=== PATIENT | female | born 1985 | race Hispanic/Latino ===

== ENCOUNTER 2016-06-06 23:56 | Inpatient (IN) | payer OTHER ==
[2016-06-07] MEDS ORDERED: ZOFRAN IV ONE (00:31)
[2016-06-07] MEDS ORDERED: NACL 0.9% 1000 ML IV ONE (00:31)
[2016-06-07 00:49] LABS: Basophils % (Auto) 0.8 % (0.0-1.8); Eosinophils % (Auto) 0.5 % (0.0-4.3); Hematocrit 42.5 % (30.3-42.9); Hemoglobin 14.2 gm/dl (10.1-14.3); Mean Corpuscular HGB Conc 33 % (30-34); Mean Corpuscular Hemoglobin 31 pg (28-32); Mean Corpuscular Volume 91 fl (79-97); Platelet Count 182 K/mm3 (140-440); Red Blood Count 4.66 M/mm3 (3.65-5.03); Red Cell Distribution Width 13.5 % (13.2-15.2); White Blood Count 8.1 K/mm3 (4.5-11.0)
[2016-06-07 01:06] LABS: Alanine Aminotransferase 23 units/L (7-56); Albumin 4.3 g/dL (3.9-5); Albumin/Globulin Ratio 1.7 %; Alkaline Phosphatase 66 units/L (35-129); Bilirubin,Total < 0.2 mg/dL (0.1-1.2); Blood Urea Nitrogen 10 mg/dL (7-17); Carbon Dioxide 19 mmol/L (22-30); Glucose 105 mg/dL (65-100); Lipase 45 units/L (13-60); Sodium 145 mmol/L (137-145); Total Protein 6.9 g/dL (6.3-8.2)
[2016-06-07 01:16] LABS: Anion Gap 21 mmol/L
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
[2016-06-07 02:23] LABS: Urine Drugs of Abuse Note Disclamer
[2016-06-07] MEDS ORDERED: ZOFRAN IV PRN (02:56)
[2016-06-07] MEDS ORDERED: PROTONIX IV ONE (02:56)
[2016-06-07 03:03] LABS: Bilirubin,Urine NEG (Negative); Blood,Urine NEG (Negative); Ketones,Urine TR mg/dL (Negative); Leukocyte Esterase,Urine LG (Negative); Mucus,Urine FEW /HPF; Nitrite,Urine NEG (Negative); Protein,Urine <15 mg/dL mg/dL (Negative); Uric Acid Crystals,Urine 2+; Urobilinogen,Urine < 2.0 mg/dL (<2.0)
[2016-06-07 03:04] LABS: Trichomonas,Urine Present /HPF
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
[2016-06-07 03:49] LABS: Hemoglobin 13.2 gm/dl (10.1-14.3)
[2016-06-07] MEDS ORDERED: DILAUDID IV ONE (06:27)
[2016-06-07 07:01] LABS: Hematocrit 40.5 % (30.3-42.9); Hemoglobin 13.3 gm/dl (10.1-14.3)
[2016-06-07] MEDS ORDERED: PROTONIX IV SCH (10:00)
[2016-06-07] MEDS: ROCEPHIN/NS 1 GM/50 ML 1 GM/50 ML BAG IV SCH (10:46)
[2016-06-07 10:49] LABS: Hematocrit 40.8 % (30.3-42.9); Hemoglobin 13.5 gm/dl (10.1-14.3)
[2016-06-07] MEDS: NACL 0.9% 1000 ML 1,000 ML IV SCH ×2 (10:57→12:30)
[2016-06-07] MEDS: TYLENOL PO PRN (10:57)
--- NOTE | 2016-06-07 11:24 | Admit Criteria Form ---
Admission Criteria Documentation: GASTROINTESTINAL BLEEDING, UPPER Clinical Indications for Admission to Inpatient Care ( Place 'X' for any and all applicable criteria): Admission is indicated for ANY ONE of the following(1)(2)(3)(4)(5)(6): [X]I. Active bleeding (eg, fresh voluminous blood in emesis or nasogastric aspirate) [ ]II. Associated conditions requiring hospitalization (eg, perforation, obstruction from ulcer) [ ]III. Inpatient admission required rather than observation care (Also use Gastrointestinal Bleeding, Upper: Observation Care as appropriate) because of ANY ONE of the following: [ ]a) Hemodynamic instability that is severe or persistent [ ]b) Anemia requiring inpatient admission as indicated by ALL of the following: [ ]1) Presence of significant clinical finding indicated by ANY ONE of the following: [ ]A. Tachycardia for age [ ]B. Orthostatic vital sign changes [ ]C. Cognitive impairment [ ]D. Heart failure [ ]E. Chest pain [ ]F. Exertional dyspnea [ ]G. Other findings suggesting inadequate perfusion (eg, peripheral or myocardial ischemia, end organ dysfunction) [ ]2) Initial (eg, emergency department, observation care) treatment with transfusion or volume replacement is judged inappropriate (due to severity of the finding) or has been ineffective [ ]c) Severe pain requiring acute inpatient management [ ]d) High-risk low platelet count [ ]e) IV fluid to replace significant ongoing losses (greater than 3 L/m2 per day) [ ]f) Immediate inpatient surgery [ ]g) Other condition, treatment or monitoring requiring inpatient admission [ ]IV. Severe liver disease (eg, cirrhosis) [ ]V. Significant active comorbid disease [ ]. Anticoagulation therapy [ ]VII. High-risk endoscopic features (arterial bleeding, adherent clot, nonbleeding visible vessel, varices, flat red spots, ulcer size greater than 2 cm, or portal hypertensive gastropathy) [ ]VIII. Previous aortic graft placement or known aortic aneurysm [ ]IX. Coagulopathy [ ]X. Syncope Extended stay beyond goal length of stay may be needed for(1)(2): [ ]a) Emergency surgery [ ]b) Varices [ ]c) Coagulation abnormalities [ ]d) Recurrent, obscure, or persistent bleeding or continued Hemodynamic instability [ ]e) Associated conditions requiring surgery (eg, perforated gastric ulcer, gastric outlet obstruction) [ ]f) Active comorbidities (eg, renal insufficiency, heart failure, pre- existing liver disease) The original [facility] [employer] content created by [facility] [employer] has been revised. The portions of the content which have been revised are identified through the use of italic text or in bold, and [facility] has neither reviewed nor approved the modified material. All other unmodified content is copyright [facility] [employer]. Please see references footnoted in the original [facility] [employer] edition 2016 Admission Criteria Met: Yes
[2016-06-07] MEDS ORDERED: NACL 0.9% 1000 ML 1,000 ML ONE (12:12)
[2016-06-07] MEDS ORDERED: BENADRYL ONE (12:15)
[2016-06-07] MEDS ORDERED: VERSED IV ONE (12:16)
[2016-06-07] MEDS ORDERED: SUBLIMAZE ONE (12:17)
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
[2016-06-07 14:50] LABS: Hemoglobin 11.6 gm/dl (10.1-14.3)
--- NOTE | 2016-06-07 16:54 | Post Operative Note ---
Pre-op diagnosis: epigastric pain, caustic ingestion Post-op diagnosis: same Findings: EGD: erythema w/o ulcers diffusely esophagus, stomach, duodenum - negative other Procedure: EGD Anesthesia: MAC Surgeon: ROSALIA BURTON Estimated blood loss: none Pathology: none Condition: stable Disposition: floor
[2016-06-07] MEDS ORDERED: LIDOCAINE VISCOUS 2% PO ONE (20:24)
[2016-06-07] MEDS ORDERED: ALUM-MAG HYDROX-SIMETH 200-200-20MG/5ML PO PRN (20:24)
[2016-06-07] MEDS: CARAFATE PO SCH (22:16)
[2016-06-08] MEDS: CARAFATE PO SCH ×4 (00:36→18:06)
[2016-06-08] MEDS: TYLENOL PO PRN (00:36)
--- NOTE | 2016-06-08 00:51 | Operative Report ---
PROCEDURE: EGD. INDICATION: 1. Epigastric pain. 2. Caustic ingestion. MEDICATIONS: Propofol per PATIENT PLACEMENT COORDINATOR. COMPLICATIONS: None. DESCRIPTION OF PROCEDURE: The patient was done in the Emergency Room. The patient had the procedure discussed with her at length. All risks, complications, and benefits were discussed after which the patient signed for the procedure to be performed. The patient was placed in the left lateral decubitus position. Mouth block placed in the patient's oral cavity. After adequate sedation medication as above, endoscope was placed into the mouth and brought to the level of the second portion of duodenum. Retroflexion view performed. The patient's vital signs remained stable throughout the procedure. FINDINGS: There was noted to be mild erythema without obvious ulcers noted along the length of the esophagus. There were no other obvious pathology was noted. A small hiatal hernia at GE junction. There was diffuse erythema also noted in the stomach without any obvious ulcers or other significant pathology. No biopsies were taken during this procedure. The duodenum appeared grossly normal except for mild erythema. Retroflexion view performed in the stomach showed no other pathology other than noted above. The patient tolerated the procedure well. No complications during the procedure. IMPRESSIONS: 1. Mild erythema noted in the esophagus as well as stomach, but no other significant pathology. 2. Small hiatal hernia. 3. Mild erythema, duodenum. RECOMMENDATIONS: 1. Clear liquid diet and advance as tolerated. 2. Carafate suspension q.i.d. before meals. 3. PPI daily. 4. Further recommendation based on progress. JOB# [id number] [facility]
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
[2016-06-08] MEDS ORDERED: MORPHINE IV ONE (02:55)
[2016-06-08] MEDS: NACL 0.9% 1000 ML 1,000 ML IV SCH ×2 (03:55→11:43)
[2016-06-08 06:29] LABS: Basophils % (Auto) 0.3 % (0.0-1.8); Eosinophils % (Auto) 1.3 % (0.0-4.3); Hematocrit 33.4 % (30.3-42.9); Hemoglobin 11.1 gm/dl (10.1-14.3); Mean Corpuscular HGB Conc 33 % (30-34); Mean Corpuscular Hemoglobin 30 pg (28-32); Mean Corpuscular Volume 91 fl (79-97); Platelet Count 137 K/mm3 (140-440); Red Blood Count 3.67 M/mm3 (3.65-5.03); Red Cell Distribution Width 13.7 % (13.2-15.2); White Blood Count 10.3 K/mm3 (4.5-11.0)
[2016-06-08 06:49] LABS: Blood Urea Nitrogen 10 mg/dL (7-17); Calcium 8.2 mg/dL (8.4-10.2); Carbon Dioxide 26 mmol/L (22-30); Chloride 106.2 mmol/L (98-107); Glucose 94 mg/dL (65-100); Sodium 138 mmol/L (137-145)
[2016-06-08 06:51] LABS: Anion Gap 11 mmol/L
[2016-06-08 06:52] LABS: Potassium 4.9 mmol/L (3.6-5.0)
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
[2016-06-08] MEDS: PROTONIX PO SCH (11:29)
[2016-06-08] MEDS: NORCO 5/325 PO PRN ×2 (11:29→21:17)
[2016-06-08] MEDS: HABITROL TD SCH (11:41)
--- NOTE | 2016-06-08 15:34 | Gastroenterology Progress Note ---
Assessment and Plan 1.S/P PO bleach intake -S/P EGD with mild erythema to esophagus and diffuse erythema to stomach. No ulcerations seen. -Continue PPI/ Carafate x 2 weeks. -Ok to advance to full liquids and if tolerates advance to soft. WBC WNL, no bleeding or vomiting. -No further GI intervention needed. -Further manangement per Primary. -GI will sign off. Subjective Date of service: 06/08/16 Interval history: No acute changes overnight. Patient has complaints of mild burning in esophagus. Objective - Constitutional Vitals: Temp Pulse Resp BP Pulse Ox 98.6 F 74 20 106/59 99 06/08/16 13:03 06/08/16 13:03 06/08/16 13:03 06/08/16 13:03 06/08/16 13:03 General appearance: no acute distress - EENT Eyes: EOM intact ENT: hearing intact - Neck Neck: supple - Respiratory Respiratory: bilateral: CTA - Cardiovascular Rhythm: regular Heart Sounds: Present: S1 & S2 - Gastrointestinal General gastrointestinal: Present: soft, non-distended, normal bowel sounds - Integumentary Integumentary: Present: warm, dry - Neurologic Neurological: alert and oriented x3 - Psychiatric Psychiatric: cooperative - Labs CBC & Chem 7: 06/08/16 05:26 06/08/16 05:26 Labs: Laboratory Results - last 24 hr 06/08/16 06/08/16 05:26 05:26 WBC 10.3 RBC 3.67 Hgb 11.1 Hct 33.4 MCV 91 MCH 30 MCHC 33 RDW 13.7 Plt Count 137 L Lymph % (Auto) 23.7 [place] % (Auto) 6.4 Eos % (Auto) 1.3 Baso % (Auto) 0.3 Lymph # 2.4 [place] # 0.7 Eos # 0.1 Baso # 0.0 Seg Neutrophils % 68.3 Seg Neutrophils # 7.0 Sodium 138 Potassium 4.9 D Chloride 106.2 Carbon Dioxide 26 D Anion Gap 11 BUN 10 Creatinine 0.5 L Estimated GFR > 60 BUN/Creatinine Ratio 20.00 Glucose 94 Calcium 8.2 L
[2016-06-09] MEDS: CARAFATE PO SCH ×5 (01:44→23:12)
[2016-06-09 06:35] LABS: Blood Urea Nitrogen 4 mg/dL (7-17); Calcium 8.6 mg/dL (8.4-10.2); Carbon Dioxide 25 mmol/L (22-30); Glucose 94 mg/dL (65-100)
[2016-06-09 06:36] LABS: Anion Gap 13 mmol/L; Chloride 103.8 mmol/L (98-107); Potassium 4.3 mmol/L (3.6-5.0); Sodium 137 mmol/L (137-145)
[2016-06-09] MEDS: HABITROL TD SCH (10:00)
[2016-06-09] MEDS: PROTONIX PO SCH (10:04)
[2016-06-09] MEDS: NORCO 5/325 PO PRN ×2 (10:04→18:53)
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
[2016-06-09] MEDS: MONISTAT VG SCH (23:23)
[2016-06-10] MEDS: NORCO 5/325 PO PRN ×4 (00:55→23:06)
[2016-06-10] MEDS: CARAFATE PO SCH ×3 (06:30→17:26)
[2016-06-10] MEDS: PROTONIX PO SCH (09:24)
[2016-06-10] MEDS: HABITROL TD SCH (09:24)
[2016-06-10] MEDS: ROCEPHIN/NS 1 GM/50 ML 1 GM/50 ML BAG IV SCH ×3 (09:27→09:57)
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
[2016-06-10] MEDS: NACL 0.9% 1000 ML 1,000 ML IV SCH (17:25)
[2016-06-10] MEDS: MONISTAT VG SCH (21:35)
[2016-06-11] MEDS: CARAFATE PO SCH ×4 (01:27→17:36)
[2016-06-11] MEDS: HABITROL TD SCH (10:31)
[2016-06-11] MEDS: PROTONIX PO SCH (10:32)
[2016-06-11] MEDS: NORCO 5/325 PO PRN (10:35)
[2016-06-11] MEDS: ROCEPHIN/NS 1 GM/50 ML 1 GM/50 ML BAG IV SCH (11:14)
--- NOTE | 2016-06-11 14:20 | Progress Note ---
Hospitalist Physical - Constitutional Vitals: Temp Pulse Resp BP Pulse Ox 98.2 F 73 18 108/65 99 06/11/16 13:46 06/11/16 13:46 06/11/16 13:46 06/11/16 13:46 06/11/16 13:46 General appearance: Present: no acute distress, well-nourished Results - Labs CBC & Chem 7: 06/08/16 05:26 06/09/16 05:37 Labs: Laboratory Last Values WBC 10.3 K/mm3 (4.5-11.0) 06/08/16 05:26 RBC 3.67 M/mm3 (3.65-5.03) 06/08/16 05:26 Hgb 11.1 gm/dl (10.1-14.3) 06/08/16 05:26 Hct 33.4 % (30.3-42.9) 06/08/16 05:26 MCV 91 fl (79-97) 06/08/16 05:26 MCH 30 pg (28-32) 06/08/16 05:26 MCHC 33 % (30-34) 06/08/16 05:26 RDW 13.7 % (13.2-15.2) 06/08/16 05:26 Plt Count 137 K/mm3 (140-440) L 06/08/16 05:26 Lymph % (Auto) 23.7 % (13.4-35.0) 06/08/16 05:26 [place] % (Auto) 6.4 % (0.0-7.3) 06/08/16 05:26 Eos % (Auto) 1.3 % (0.0-4.3) 06/08/16 05:26 Baso % (Auto) 0.3 % (0.0-1.8) 06/08/16 05:26 Lymph # 2.4 K/mm3 (1.2-5.4) 06/08/16 05:26 [place] # 0.7 K/mm3 (0.0-0.8) 06/08/16 05:26 Eos # 0.1 K/mm3 (0.0-0.4) 06/08/16 05:26 Baso # 0.0 K/mm3 (0.0-0.1) 06/08/16 05:26 Seg Neutrophils % 68.3 % (40.0-70.0) 06/08/16 05:26 Seg Neutrophils # 7.0 K/mm3 (1.8-7.7) 06/08/16 05:26 Sodium 137 mmol/L (137-145) 06/09/16 05:37 Potassium 4.3 mmol/L (3.6-5.0) 06/09/16 05:37 Chloride 103.8 mmol/L (98-107) 06/09/16 05:37 Carbon Dioxide 25 mmol/L (22-30) 06/09/16 05:37 Anion Gap 13 mmol/L 06/09/16 05:37 BUN 4 mg/dL (7-17) L 06/09/16 05:37 Creatinine 0.5 mg/dL (0.7-1.2) L 06/09/16 05:37 Estimated GFR > 60 ml/min 06/09/16 05:37 BUN/Creatinine Ratio 8.00 % 06/09/16 05:37 Glucose 94 mg/dL (65-100) 06/09/16 05:37 Calcium 8.6 mg/dL (8.4-10.2) 06/09/16 05:37 Total Bilirubin < 0.2 mg/dL (0.1-1.2) 06/07/16 00:31 AST 21 units/L (5-40) 06/07/16 00:31 ALT 23 units/L (7-56) 06/07/16 00:31 Alkaline Phosphatase 66 units/L (35-129) 06/07/16 00:31 Total Protein 6.9 g/dL (6.3-8.2) 06/07/16 00:31 Albumin 4.3 g/dL (3.9-5) 06/07/16 00:31 Albumin/Globulin Ratio 1.7 % 06/07/16 00:31 Lipase 45 units/L (13-60) 06/07/16 00:31 HCG, Qual Negative (Negative) 06/07/16 00:31 Urine Color Yellow (Yellow) 06/07/16 01:45 Urine Turbidity Slightly-cloudy (Clear) 06/07/16 01:45 Urine pH 5.0 (5.0-7.0) 06/07/16 01:45 Ur Specific [place] 1.024 (1.003-1.030) 06/07/16 01:45 Urine Protein <15 mg/dl mg/dL (Negative) 06/07/16 01:45 Urine Glucose (UA) Neg mg/dL (Negative) 06/07/16 01:45 Urine Ketones Tr mg/dL (Negative) 06/07/16 01:45 Urine Blood Neg (Negative) 06/07/16 01:45 Urine Nitrite Neg (Negative) 06/07/16 01:45 Ur Reducing Substances Not Reportable 06/07/16 01:45 Urine Bilirubin Neg (Negative) 06/07/16 01:45 Urine Ictotest Not Reportable 06/07/16 01:45 Urine Urobilinogen < 2.0 mg/dL (<2.0) 06/07/16 01:45 Ur Leukocyte Esterase Lg (Negative) 06/07/16 01:45 Urine WBC (Auto) 8.0 /HPF (0.0-6.0) H 06/07/16 01:45 Urine RBC (Auto) 8.0 /HPF (0.0-6.0) 06/07/16 01:45 U Epithel Cells (Auto) 13.0 /HPF (0-13.0) 06/07/16 01:45 Uric Acid Crystals 2+ 06/07/16 01:45 Urine Mucus Few /HPF 06/07/16 01:45 Urine Trichomonas Present /HPF 06/07/16 01:45 Urine HCG, Qual Negative (Negative) 06/07/16 01:45 Urine Opiates Screen Presumptive negative 06/07/16 01:45 Urine Methadone Screen Presumptive negative 06/07/16 01:45 Ur Barbiturates Screen Presumptive negative 06/07/16 01:45 Ur Phencyclidine Scrn Presumptive negative 06/07/16 01:45 Ur Amphetamines Screen Presumptive negative 06/07/16 01:45 U Benzodiazepines Scrn Presumptive negative 06/07/16 01:45 Urine Cocaine Screen Presumptive negative 06/07/16 01:45 U Marijuana (THC) Screen Presumptive negative 06/07/16 01:45 Drugs of Abuse Note Disclamer 06/07/16 01:45 Plasma/Serum Alcohol 0.06 gm% (0-0.07) 06/07/16 00:31
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
[2016-06-11 19:31] VITALS: BP 125/71
== END 2016-06-11 19:47 | DRG 918 ==
LOC: ED 23:56 → EEVIPCON 23:56 → 4A 06-07 02:56
PROVIDERS: ADMIT Internal Medicine; ATTEND Internal Medicine
PROC: 0DJ08ZZ Inspection of Upper Intestinal Tract, Via Natural or Artificial Opening Endoscopic (ICD-10-PCS; principal; 2016-06-07)
DX: T54.92XA Toxic effect of unspecified corrosive substance, intentional self-harm, initial encounter (principal); K92.0 Hematemesis; N39.0 Urinary tract infection, site not specified; Y92.89 Other specified places as the place of occurrence of the external cause; R45.6 Violent behavior; F17.210 Nicotine dependence, cigarettes, uncomplicated; K29.60 Other gastritis without bleeding; K29.70 Gastritis, unspecified, without bleeding; K20.9 Esophagitis, unspecified; T14.91 Suicide attempt
CPT/HCPCS: 36415; 80048; 80053; 80307; 80320; 81001; 81025; 83690; 84703; 85014; 85018; 85025; 87086; 96361; 96374; C9113; G0480; J0696; J1170; J1200; J2250; J2270; J2405; J3010; J7030